=== PATIENT | female | born 1940 | race Caucasian/White ===

== ENCOUNTER 2025-05-18 18:36 | Emergency (ER) | payer MEDICARE, SELFPAY ==
[2025-05-18 18:39] VITALS: BP 137/84; BMI 26.5
[2025-05-18 19:00] VITALS: BP 116/83
[2025-05-18 19:01] LABS: % Basophils 0.3 % (0-2); % Eosinophils 0.1 % (0-6); % Immature Granulocytes 0.5 % (0-0.5); % Monocytes 4.2 % (1.7-9.3); % Neutrophils 87.9 % (42.2-75.2); Absolute Basophils 0.1 10^3/uL (0-0.2); Absolute Immature Granulocytes 0.1 10^3/uL (0-0.05); Absolute Lymphocytes 1.1 10^3/uL (1.2-3.4); Absolute Monocytes 0.6 10^3/uL (0.1-0.6); Absolute Neutrophils 13.2 10^3/uL (1.4-6.5); Hematocrit 47.1 % (37.0-47.0); Hemoglobin 16.5 g/dL (12.0-16.0); Mean Corpuscular Hgb 29.5 pg (27.0-31.0); Mean Corpuscular Volume 84.3 fL (81.0-99.0); Mean Platelet Volume 9.8 fL (7.4-10.4); Nucleated Red Blood Cells % 0 %; Platelet Count 389 10^3/uL (130-400); Red Blood Cell Count 5.59 10^6/uL (4.20-5.40); Red Cell Dist. Width 12.5 % (11.5-14.5)
[2025-05-18 19:18] LABS: ALT (SGPT) 25 U/L (0-35); AST (SGOT) 39 U/L (14-36); Albumin 4.2 g/dl (3.5-5.0); Alkaline Phosphatase 98 U/L (38-126); Blood Urea Nitrogen 18 mg/dl (7-17); Calcium 9.2 mg/dl (8.4-10.2); Carbon Dioxide 27 mmol/L (22-30); Chloride 101 mmol/L (98-107); Creatine Phosphokinase 262 U/L (30-135); Estimated Creatinine Clearance 51 ml/min; Glucose 155 mg/dl (70-99); Potassium 4.5 mmol/L (3.5-5.1); Sodium 136 mmol/L (135-145); Total Bilirubin 1.7 mg/dl (0.2-1.3); Total Protein 7.5 g/dl (6.3-8.2); eGFR > 60.00
--- NOTE | 2025-05-18 20:20 | ED.GENMED ---
History of Present Illness
General
Chief Complaint: Fall
Source: patient
Exam Limitations: none
Time Seen by Provider: 05/18/25 19:53
History of Present Illness
History of Present Illness:
84-year-old female presents from home where she lives by herself after her daughter found her on the floor. She fell sometime this morning and patient states she was not on the floor that long. Her daughter helped get up to her chair and since she
got up she vomited. Patient denies pain although daughter states she would prefer not to tell any when she was in pain. She does not feel like she herself from the fall. She is not anticoagulated. There was incontinence of urine at that time.
Daughter question the possibility of UTI as she has had 1 in these in the past that presented similarly.
Past History
Past History
ED Past Medical History: HTN, Hypercholesterolemia and Other (Arthritis, cataracts, impaired vision, macular degeneration)
ED Past Surgical History: Orthopedic (Bilateral total knee replacements) and Tonsilectomy
Social History
Tobacco: Non-smoker
Alcohol: None
Drug: None
Living: alone
Employment: Employed
Phy Exam
Physical Exam
Physical Exam:
General: Well-appearing female no acute respiratory distress
HEENT: Normocephalic atraumatic
Heart: Regular rate and rhythm
Lungs: Clear no wheeze
Abdomen is soft tender to the right lower abdomen no guarding or rebound
Musculoskeletal exam: Good range of motion to the arms. The patient is tender about the right knee
Neurologic exam: Alert conversing appropriately. No facial asymmetry
Course
Orders/Labs/Results
Orders:
Orders
05/18/25 18:51
CPK [Creatine Phosphokinase] Urgent
Complete Blood Count/With Diff Urgent
Comprehensive Metabolic Panel Urgent
05/18/25 20:19
CT Abd/pelvis W Iv Cont Urgent
Comment:
Reason For Exam: vomting, abdominal pain
CT Head W/o Iv Contrast Urgent
Comment:
Reason For Exam: fall
0.9% Sodium Chloride 1000 ml [Nss] 1,000 ml IV BOLUS
CR Knee - Left 4 Or More View* Urgent
Reason For Exam: fall
05/18/25 22:59
Urinalysis Reflex To Culture Urgent
Date Specimen was Collected: 05/18/25
Time Specimen was Collected: 22:57
Urine Microscopic Reflex Cult Urgent
Urine Culture Urgent
[id number] Source: U
Specimen Description:
Date Specimen was Collected: 05/18/25
Time Specimen was Collected: 22:57
Abnormal Lab Results
05/18/25 05/18/25
18:51 22:59
WBC 15.0 H 10^3/uL
(4.8-10.8)
RBC 5.59 H 10^6/uL
(4.20-5.40)
Hgb 16.5 H g/dL
(12.0-16.0)
Hct 47.1 H %
(37.0-47.0)
Abs Immat Gran (auto) 0.1 H 10^3/uL
(0-0.05)
Absolute Neuts (auto) 13.2 H 10^3/uL
(1.4-6.5)
Absolute Lymphs (auto) 1.1 L 10^3/uL
(1.2-3.4)
Neutrophils % 87.9 H %
(42.2-75.2)
Lymphocytes % 7.0 L %
(20.5-51.1)
BUN 18 H mg/dl
(7-17)
Glucose 155 H mg/dl
(70-99)
Total Bilirubin 1.7 H mg/dl
(0.2-1.3)
AST 39 H U/L
(14-36)
Creatine Kinase 262 H U/L
(30-135)
Leukocyte Esterase Rfl 1+ A
(Negative)
Urine Bacteria (Reflex) Moderate A
(Negative)
05/18/25 18:51
05/18/25 18:51
Vital Signs
Initial and Last Documented VS:
Initial Vital Signs
Temp Pulse Resp BP Pulse Ox
98.7 F 106 16 137/84 95
05/18/25 18:39 05/18/25 18:39 05/18/25 18:39 05/18/25 18:39 05/18/25 18:39
Last Documented Vital Signs
Temp Pulse Resp BP Pulse Ox
98.7 F 96 25 136/75 94
05/18/25 18:39 05/18/25 23:00 05/18/25 23:00 05/18/25 23:00 05/18/25 20:22
MDM/Problems Addressed
Differential Diagnosis Includes:
Weakness and fall. Consider mechanical fall versus UTI versus viral illness to the abdomen or appendicitis. Uncertain whether or not she hit her head. Will order CT of head and abdomen. X-ray right knee pending. Labs demonstrate leukocytosis
with a white blood cell count of 15,000. Will check urinalysis. Fluids ordered.
Daughter is with the patient. Patient does typically ambulate pretty well on her own but does occasionally use a cane
*Pulse Oximetry
SaO2: 94
Oxygen Mode of Delivery: Room air
Patient hypoxic: no
*Critical Care Note
Total Time (30-74mins, 75-104mins- exclusive of procedures): Not Applicable
Update Note
Update Note:
Workup here with negative CT of head. There is a chronic appearing compression fracture of L1 on her CT of the abdomen otherwise no acute finding. Urinalysis questionable for UTI. White count is elevated. Will cover secondary to the white count
and UA findings. No indication for admission. Will start Omnicef and discharge. Daughter comfortable with the plan
ED Attending Note
-
Portions of this chart may have been created with voice recognition software.� Occasional wrong word or��sound alike� substitutions may have occurred due to the inherent limitations of voice recognition software.
Discharge Plan
Departure
Patient Disposition: Home (Routine Discharge)
Date of Disposition: 05/19/25
Time of Disposition: 00:08
Patient with high blood pressure during this ER visit?: No
Discharge Problem:
Acute UTI
Prescriptions:
New
cefdinir 300 mg capsule
300 mg PO BID 5 Days Qty: 10 0RF
No Action
gemfibrozil 600 MG tablet
600 mg PO BID
Patient Comments:
take 30 minutes prior to eating
amlodipine 5 MG tablet
5 mg PO DAILY Qty: 1 0RF
Rx Instructions:
*HOLD SYSTOLIC BLOOD PRESSURE <135*
PreserVision AREDS
1 tab PO BID
Referrals:
Karen Sky NP [Family Provider, Family Practice]
Activity Restrictions/Additional Instructions:
Rest. Stay hydrated. Take antibiotic as directed. Return if worse otherwise follow-up with your doctor
Interventions
Interventions:
*Risk Screen - Suicide Last Done: 05/18/25 18:39
*General Assessment Last Done: 05/18/25 18:39
*Neglect/Abuse Screening Last Done: 05/18/25 18:39
*ED- Fall Risk Assessment Last Done: 05/18/25 20:31
ED-Musculoskeletal Assessment Last Done: 05/18/25 20:39
ED- Neurological Assessment Last Done: 05/18/25 20:39
ED-Skin Assessment Last Done: 05/18/25 20:39
Discharge Date and Time
Print Language: PORTUGUESE
[2025-05-18] MEDS: NSS 1000 IV (20:29)
--- NOTE | 2025-05-18 20:41 | EDRN ---
Pt says she fell yesterday however family member at bedside says she was with pt last evening and pt was fine. Pt found on the ground today, family member thinks pt fell this morning. Pt says she fell onto her knee. Pt denies head injury and loc
however family member says she does not think pt would admit that happened if it did. Pt denies pain. Pt says she has a walker and cane but does not use them. Family member says pt was using her cane when she fell because it was found next to
her. Pt oriented to person, place and time.
[2025-05-18 21:00] VITALS: BP 126/76
[2025-05-18 22:56] VITALS: BP 134/78
[2025-05-18 23:00] VITALS: BP 136/75
[2025-05-18 23:05] LABS: Urine Albumin Negative (Neg - Trace); Urine Bilirubin Negative (Negative); Urine Character Clear (Clear); Urine Color Yellow; Urine Glucose Negative (Negative); Urine Ketone Negative (Negative); Urine Leukocyte 1+ (Negative); Urine Nitrite Negative (Negative); Urine Occult Blood Negative (Negative); Urine Urobilinogen Negative (Neg - 1+)
[2025-05-18 23:12] LABS: Urine Bacteria Moderate (Negative); Urine Red Blood Cell 0-2 /HPF (0-2); Urine Squamous Cell 0-2 /LPF (Few)
[2025-05-19] VITALS: BP 129/74
[2025-05-19] MEDS: OMNICEF 300 MG PO (00:14)
== END 2025-05-19 00:30 | disposition home or self-care (01) ==
LOC: EMR 18:36
PROVIDERS: Physician Assistant; EMERGENCY PHYSICIAN Emergency Medicine; FAMILY PHYSICIAN Nurse Practitioner Family
DX: N39.0 Urinary tract infection, site not specified (principal); W19.XXXA Unspecified fall, initial encounter
CPT/HCPCS: 96360; 70450; 73564; 74177; 80053; 81003; 81015; 82550; 85025; 87086; 96361; 99285; Q9967